=== PATIENT | female | born 2000 | race Caucasian/White ===

== ENCOUNTER 2019-03-18 11:20 | Emergency (ER) | payer SELFPAY ==
[~2019-03-18] VITALS: Wt 62.3 kg
[2019-03-18] MEDS ORDERED: SOD CHLORIDE 0.9% 1,000 ML IV STA (11:34)
[2019-03-18] MEDS ORDERED: LORAZEPAM 2 MG INJ IV STA (11:34)
--- NOTE | 2019-03-18 13:21 | ERD ---
ER Documentation Chief Complaint Chief Complaint SOB/ANXIETY SINCE LAST NIGHT HPI This is a 18-year-old female with a past medical history of depression. The patient currently had been placed on Zoloft 1 month ago. She takes 25 mg daily. Her therapist instructed her to increase her dose to 50 mg. Therefore the patient took 50 mg this morning. The patient is currently undergoing clinicals that she is in school to become an [employer]. While in her clinicals today she started to feel palpitations and started to feel very anxious. She states that she has been very anxious with school. She planes of mild shortness of breath but denies any shortness of breath at rest or exertion. She states she has had similar symptoms in the past when she feels anxious however the patient does not take any antianxiety medication. She has no suicidal homicidal thoughts or ideations. ROS All systems reviewed and are negative except as per history of present illness. PMhx/Soc Medical and Surgical Hx: pt denies Surgical Hx History of Surgery: No Anesthesia Reaction: No Hx Respiratory Disorders: No Hx Cardiac Disorders: No Hx Psychiatric Problems: Yes (anxiety ) Hx Miscellaneous Medical Probl: No Hx Alcohol Use: No Hx Substance Use: No Hx Tobacco Use: No Smoking Status: Never smoker Physical Exam Vitals Vital Signs Date Temp Pulse Resp B/P (MAP) Pulse Ox O2 O2 Flow FiO2 Time Delivery Rate 03/18/19 117 18 130/78 99 Room Air 12:20 (95) 03/18/19 98.1 140 18 159/81 99 11:28 (107) Physical Exam Constitutional:Well-developed. Well-nourished. HEENT:Normocephalic. Atraumatic.Pupils were equal round reactive to light. Moist mucous membranes.No tonsillar exudates. Neck: No nuchal rigidity. No lymphadenopathy. No posterior cervical spine tenderness or step-offs. Respiratory: Not using accessory muscles of respiration.Lungs were clear to auscultation bilaterally. No rhonchi. No rales. No wheezing. Cardiovascular: Tachycardic with regular rhythm.No murmurs. No rubs were appreciated.S1, S2 normal. Distal pulses are palpable 2+ bilaterally. GI: Abdomen was soft. Nontender. Non Distended. No pulsatile abdominal masses or bruits. No rebound. No guarding. Bowel sounds were present and normal. Muscle skeletal: Full range of motion of both the upper and lower extremities bilaterally.Normal muscle tone.No assymetrical calf tenderness or swelling. Skin: No petechia, no purpura. No lesions on the palms or the soles of the feet. No maculopapular rash. NEURO: Patient was alert, awake, orientated x3.No facial droop. Gait observed and normal with no ataxia.Speech had regular rate and rhythm. No focal neurological deficits. Result Diagram: 03/18/19 1208 03/18/19 1208 Results 24 hrs Laboratory Tests Test 03/18/19 12:08 03/18/19 12:18 White Blood Count 7.1 10^3/ul Red Blood Count 4.81 10^6/ul Hemoglobin 15.0 g/dl Hematocrit 44.6 % Mean Corpuscular Volume 92.7 fl Mean Corpuscular Hemoglobin 31.2 pg Mean Corpuscular Hemoglobin Concent 33.6 g/dl Red Cell Distribution Width 11.9 % Platelet Count 252 10^3/UL Mean Platelet Volume 12.4 fl Immature Granulocytes % 0.300 % Neutrophils % 56.6 % Lymphocytes % 32.5 % Monocytes % 8.8 % Eosinophils % 1.0 % Basophils % 0.8 % Nucleated Red Blood Cells % 0.0 /100WBC Immature Granulocytes # 0.020 10^3/ul Neutrophils # 4.0 10^3/ul Lymphocytes # 2.3 10^3/ul Monocytes # 0.6 10^3/ul Eosinophils # 0.1 10^3/ul Basophils # 0.1 10^3/ul Nucleated Red Blood Cells # 0.0 10^3/ul Urine Color YELLOW Urine Clarity CLEAR Urine pH 7.0 Urine Specific [place] 1.008 Urine Ketones NEGATIVE mg/dL Urine Nitrite NEGATIVE mg/dL Urine Bilirubin NEGATIVE mg/dL Urine Urobilinogen NEGATIVE mg/dL Urine Leukocyte Esterase NEGATIVE Jhon/ul Urine Hemoglobin NEGATIVE mg/dL Urine Glucose NEGATIVE mg/dL Urine Total Protein NEGATIVE mg/dl Sodium Level 141 mmol/L Potassium Level 3.8 mmol/L Chloride Level 105 mmol/L Carbon Dioxide Level 24 mmol/L Anion Gap 12 Blood Urea Nitrogen 10 mg/dl Creatinine 0.61 mg/dl Est Glomerular Filtrat Rate mL/min > 60 mL/min Glucose Level 139 mg/dl Calcium Level 9.7 mg/dl Total Bilirubin 0.6 mg/dl Direct Bilirubin 0.00 mg/dl Indirect Bilirubin 0.6 mg/dl Aspartate Amino Transf (AST/SGOT) 26 IU/L Alanine Aminotransferase (ALT/SGPT) 17 IU/L Alkaline Phosphatase 89 IU/L Creatine Kinase 56 IU/L Creatine Kinase Index 0.4 Creatinine Kinase MB (Mass) < 0.22 ng/ml Troponin I < 0.012 ng/ml Total Protein 8.0 g/dl Albumin 4.8 g/dl Globulin 3.20 g/dl Albumin/Globulin Ratio 1.50 Salicylates Level < 1.0 mg/dl Urine Opiates Screen Negative Acetaminophen Level < 10.0 ug/ml Urine Barbiturates Negative Urine Amphetamines Screen Negative Urine Benzodiazepines Screen Negative Urine Cocaine Screen Negative Urine Cannabinoids Positive Ethyl Alcohol Level < 10.0 mg/dl POC Beta HCG, Qualitative NEGATIVE Current Medications Medications Dose Sig/Morteza Start Time Status Last (Trade) Ordered Route PRN Stop Time Admin Dose Reason Admin Sodium 1,000 ml @ Q1H STAT 03/18/19 DC 03/18/19 Chloride 1,000 mls/hr IV 11:34 12:15 03/18/19 12:33 Lorazepam 1 mg ONCE STAT 03/18/19 DC 03/18/19 (Ativan) IV 11:34 12:19 03/18/19 11:36 Procedures/MDM This is a very pleasant 18-year-old female presented to the emergency department with palpitations and anxiousness. The patient was placed on a director of cardiac cath lab and IV access was established. The patient was given a liter bolus of normal saline. She was given 1 mg of Ativan intravenously. 12 Lead EKG tracing ordered and reviewed by myself showed: Sinus tachycardia 151 bpm and no arrhythmia. MN interval normal. QRS duration normal. No ST segment elevation No ST segment depression. No changes consistent with acute ischemia. After the patient received the above treatment she had significant improvement of her tachycardia. Her heart rate is now 117. She had no evidence of sepsis. My clinical suspicion was low for pulmonary embolism or thyrotoxicosis. She indicated that she felt comfortable being discharged home and will follow up with her therapist. The patient was discharged home in fair condition. They were instructed to return to the emergency department at any time if there was any worsening of their condition. The patient stated they would follow up with their PCP in the next 24-48 hours to initiate a suitable medication regimen under the care of their PCP as well as to allow their PCP to monitor any drug reactions. The patient was discharged home with prescriptions after they gave informed consent to the new medication. They were also fully informed by myself on the adverse effects and adverse drug interactions in order to provide adequate safeguards to prevent possible adverse reactions to medications. Departure Diagnosis: Primary Impression: Sinus tachycardia Additional Impression: Acute anxiety Condition: SHAWANDA Link MD March 18, 2019 13:21
[2019-03-18 13:33] VITALS: BP 114/71; PULSE 125; RESP 20
== END 2019-03-18 13:52 | disposition home or self-care (01) ==
LOC: E/R 11:20
DX: R00.0 Tachycardia, unspecified (principal); F41.9 Anxiety disorder, unspecified
CPT/HCPCS: 80053; 80307; 81003; 81025; 82550; 82553; 84484; 85025; J2060; J7030; 96361; 96374